=== PATIENT | female | born 1960 | race Caucasian/White ===

== ENCOUNTER → 2016-12-06 | Outpatient (CLI) | payer OTHER ==
[~2016-12-06] MED LIST: ALEVE220 MG PO; ANTIVERT25 MG; AUGMENTIN 875875 MG PO; CEFUROXIME500 MG PO; CENTRUM SILVER1 EAC4 PO; CIPRODEX OTIC7.5 ML OTIC; CORTISPORIN OTI10 ML OTIC; HYDROCODONE-APA1 TA1 PO; IBUPROFEN 800800 MG PO; LEVAQUIN 500 M500 M1 PO; LEVOTHYROXIN0.112 M1 PO; LEVOTHYROXINE 0.1 MG PO; METFORMIN HCL500 MG PO; MS CONTIN15 MG PO; MUCINEX TA600 MG/TA2 PO; NORCO 5-325 TA1 EACH PO; PREDNISONE 10 M10 MG PO; PREDNISONE 20 M20 MG PO; VENTOLIN HFA 1818 GM INH; XANAX 0.5 MG0.5 MG PO; ZOFRAN ODT4 MG SUBLING; ZPAK PO
== END ==
LOC: CAT 09:20
DX: J32.9 Chronic sinusitis, unspecified (principal); M31.30 Wegener's granulomatosis without renal involvement